=== PATIENT | male | born 1970 | race Asian ===

== ENCOUNTER 2021-10-16 14:37 | Emergency (ER) | payer BC ==
[2021-10-16] MEDS ORDERED: Nirmatrelvir/Ritonavir 300 MG/100 MG Dose Pack ONE ×2 (14:49→17:44)
[2021-10-16 15:35] LABS: RESPIRATORY SYNCYTIAL VIR NAA NEGATIVE (NEGATIVE)
[2021-10-16 15:40] LABS: CORONAVIRUS COVID-19 NAA POSITIVE (NEGATIVE)
[2021-10-16] MEDS ORDERED: Nirmatrelvir/Ritonavir 300 MG/100 MG Dose Pack PO SCH (21:00)
== END 2021-10-16 14:50 | disposition home or self-care (01) ==
LOC: VM.ED 14:37
DX: U07.1 COVID-19 (principal)
CPT/HCPCS: 0241U; 99283; 99284; A9270